=== PATIENT | female | born 1930 | race Hispanic/Latino ===

== ENCOUNTER 2021-07-31 13:03 | Inpatient (IN) | payer MEDICAID ==
[~2021-07-31] VITALS: Ht 167.6 cm; Wt 154.2 kg
[2021-07-31 13:22] LABS: BASOPHILS % 0.1 % (0.0-1.0); HEMATOCRIT 43.3 % (34.2-44.1); HEMOGLOBIN 13.8 g/dL (12.0-16.0); LYMPHOCYTES # (AUTO) 0.7 (1.0-3.2); LYMPHOCYTES % 4.3 % (18.0-39.1); MEAN CORPUSCULAR HGB CONC 31.9 g/dL (31-35); MONOCYTES # (AUTO) 1.4 (0.2-0.8); MONOCYTES % 9.2 % (4.4-11.3); NEUTROPHILS # (AUTO) 12.9 (2.1-6.9); NEUTROPHILS % 85.5 % (38.7-80.0); PLATELET COUNT 241 x10e3/uL (140-360); RED BLOOD COUNT 4.92 x10e6/uL (3.6-5.1)
[2021-07-31] MEDS ORDERED: ACETAMINOPHEN 650 MG SUPP PR NR (13:30)
[2021-07-31 13:40] LABS: ALBUMIN/GLOBULIN RATIO 0.5 (0.8-2.0); ANION GAP 20.3 mmol/L (8-16); CALCIUM 8.5 mg/dL (8.4-10.2); CREATININE, SERUM 0.69 mg/dL (0.57-1.11); POTASSIUM 4.3 mmol/L (3.5-5.1)
[2021-07-31 13:46] LABS: BACTERIA,URINE RARE /HPF; CLARITY,URINE SL CLOUDY (CLEAR); COLOR,URINE YELLOW (YELLOW); EPITHELIAL CELLS,URINE FEW /LPF; KETONES,URINE >=160 (NEGATIVE); LEUKOCYTE ESTERASE ,URINE NEGATIVE (NEGATIVE); NITRITE,URINE NEGATIVE (NEGATIVE); PROTEIN,URINE DIPSTICK 1+ (NEGATIVE); URINE UROBILINOGEN 1 mg/dL (0.2 - 1)
[2021-07-31] MEDS ORDERED: Vancomycin IV 1 GM in SODIUM CHLORIDE 0.9% 250ML 250 ML IV STA (13:48)
[2021-07-31] MEDS ORDERED: PIPERACILLIN/TAZOBACTAM 4.5 GM in SODIUM CHLORIDE 0.9% 100 ML IV ONE (14:00)
[2021-07-31] MEDS ORDERED: ACETAMINOPHEN 1000 MG/100 ML IV ONE (14:00)
[2021-07-31] MEDS ORDERED: SODIUM CHLORIDE 0.9% 1000ML 1,000 ML IV SCH ×2 (14:00→14:45)
[2021-07-31 16:25] VITALS: BP 136/70
[2021-07-31 16:30] VITALS: BP_SYST 136; BP_DIAS 70; BP_DIAS 79
[2021-07-31] MEDS ORDERED: DEXTROSE 50% SYRINGE 50 ML IV PRN (16:30)
[2021-07-31] MEDS ORDERED: Vancomycin IV 1 GM in SODIUM CHLORIDE 0.9% 250ML 250 ML IV SCH (16:30)
[2021-07-31] MEDS: INSULIN REGULAR, HUMAN 100 UNIT/1 ML SQ SCH ×2 (17:00→21:17)
[2021-07-31] MEDS ORDERED: SODIUM CHLORIDE 0.9% 250ML 250 ML ONE (18:26)
[2021-07-31] MEDS: PIPERACILLIN/TAZOBACTAM 3.375 GM in SODIUM CHLORIDE 0.9% 50ML 50 ML IV SCH ×2 (18:27→23:15)
[2021-07-31 20:00] VITALS: BP 157/75
[2021-07-31 21:03] VITALS: BP 157/75
[2021-08-01] VITALS (10 sets, daily range): BP systolic 147–169; BP diastolic 64–80
[2021-08-01] MEDS: Vancomycin IV 1 GM in SODIUM CHLORIDE 0.9% 250ML 250 ML IV SCH ×2 (04:38→17:39)
[2021-08-01] MEDS: PIPERACILLIN/TAZOBACTAM 3.375 GM in SODIUM CHLORIDE 0.9% 50ML 50 ML IV SCH ×4 (05:10→23:12)
[2021-08-01 05:48] LABS: BASOPHILS % 0.1 % (0.0-1.0); EOSINOPHILS % 0.1 % (0.0-6.0); HEMATOCRIT 41.1 % (34.2-44.1); HEMOGLOBIN 13.5 g/dL (12.0-16.0); LYMPHOCYTES # (AUTO) 0.9 (1.0-3.2); LYMPHOCYTES % 6.7 % (18.0-39.1); MEAN CORPUSCULAR HEMOGLOBIN 28.2 pg (28-32); MEAN CORPUSCULAR HGB CONC 32.8 g/dL (31-35); MEAN CORPUSCULAR VOLUME 85.8 fL (81-99); MONOCYTES # (AUTO) 1.2 (0.2-0.8); MONOCYTES % 8.8 % (4.4-11.3); NEUTROPHILS # (AUTO) 11.2 (2.1-6.9); NEUTROPHILS % 83.2 % (38.7-80.0); PLATELET COUNT 210 x10e3/uL (140-360); RED BLOOD COUNT 4.79 x10e6/uL (3.6-5.1); RED CELL DISTRIBUTION WIDTH 13.9 % (11.7-14.4)
[2021-08-01 06:12] LABS: ANION GAP 13.6 mmol/L (8-16); CALCIUM 7.9 mg/dL (8.4-10.2); CREATININE, SERUM 0.53 mg/dL (0.57-1.11); POTASSIUM 3.6 mmol/L (3.5-5.1)
[2021-08-01 06:36] LABS: THYROID STIMULATING HORMONE 1.105 uIU/mL (0.350-4.940)
[2021-08-01] MEDS: INSULIN REGULAR, HUMAN 100 UNIT/1 ML SQ SCH ×4 (08:01→20:07)
[2021-08-01] MEDS: HYDROCODONE/APAP 10MG-325MG TAB PO PRN ×2 (08:14→17:40)
[2021-08-01] MEDS ORDERED: SODIUM CHLORIDE 0.9% 250ML 250 ML ONE (12:37)
[2021-08-01] MEDS: PIOGLITAZONE HCL 45 MG TAB PO SCH (15:45)
[2021-08-01] MEDS: LOSARTAN POTASSIUM 25 MG TAB PO SCH (17:39)
[2021-08-02] VITALS (9 sets, daily range): BP systolic 126–188; BP diastolic 44–82
[2021-08-02] MEDS: HYDROCODONE/APAP 10MG-325MG TAB PO PRN ×3 (03:12→17:45)
[2021-08-02] MEDS: HYDRALAZINE HCL 20 MG/ML VIAL IV PRN (03:12)
[2021-08-02 05:40] LABS: ANION GAP 16.3 mmol/L (8-16); CALCIUM 8.3 mg/dL (8.4-10.2); CREATININE, SERUM 0.51 mg/dL (0.57-1.11); POTASSIUM 3.3 mmol/L (3.5-5.1)
[2021-08-02] MEDS: Vancomycin IV 1 GM in SODIUM CHLORIDE 0.9% 250ML 250 ML IV SCH ×2 (05:59→16:30)
[2021-08-02] MEDS: PIPERACILLIN/TAZOBACTAM 3.375 GM in SODIUM CHLORIDE 0.9% 50ML 50 ML IV SCH ×3 (07:06→18:35)
[2021-08-02] MEDS: INSULIN REGULAR, HUMAN 100 UNIT/1 ML SQ SCH ×4 (07:30→21:00)
[2021-08-02 07:57] LABS: BASOPHILS % 0.3 % (0.0-1.0); HEMATOCRIT 45.1 % (34.2-44.1); HEMOGLOBIN 14.5 g/dL (12.0-16.0); LYMPHOCYTES # (AUTO) 0.7 (1.0-3.2); LYMPHOCYTES % 4.5 % (18.0-39.1); MEAN CORPUSCULAR HEMOGLOBIN 28.1 pg (28-32); MEAN CORPUSCULAR HGB CONC 32.2 g/dL (31-35); MEAN CORPUSCULAR VOLUME 87.4 fL (81-99); MONOCYTES % 6.4 % (4.4-11.3); NEUTROPHILS # (AUTO) 13.5 (2.1-6.9); NEUTROPHILS % 87.7 % (38.7-80.0); PLATELET COUNT 294 x10e3/uL (140-360); RED BLOOD COUNT 5.16 x10e6/uL (3.6-5.1); RED CELL DISTRIBUTION WIDTH 13.9 % (11.7-14.4)
[2021-08-02] MEDS: LOSARTAN POTASSIUM 25 MG TAB PO SCH (09:34)
[2021-08-02] MEDS: PIOGLITAZONE HCL 45 MG TAB PO SCH (09:34)
[2021-08-02] MEDS ORDERED: BISACODYL 10 MG SUPP PR NR (11:15)
[2021-08-02] MEDS: POTASSIUM CHLORIDE 20 MEQ TAB CR PO SCH ×2 (15:00→18:35)
[2021-08-02] MEDS: FLUCONAZOLE 200 MG/100 ML 100 ML IV SCH (15:00)
[2021-08-03] VITALS (8 sets, daily range): BP systolic 131–152; BP diastolic 55–79
[2021-08-03] MEDS: HYDROCODONE/APAP 10MG-325MG TAB PO PRN ×3 (00:14→19:12)
[2021-08-03] MEDS: PIPERACILLIN/TAZOBACTAM 3.375 GM in SODIUM CHLORIDE 0.9% 50ML 50 ML IV SCH ×4 (00:29→18:16)
[2021-08-03] MEDS: Vancomycin IV 1 GM in SODIUM CHLORIDE 0.9% 250ML 250 ML IV SCH ×2 (04:30→16:30)
[2021-08-03 07:23] LABS: BASOPHILS % 0.1 % (0.0-1.0); EOSINOPHILS % 0.1 % (0.0-6.0); HEMATOCRIT 40.8 % (34.2-44.1); HEMOGLOBIN 13.4 g/dL (12.0-16.0); LYMPHOCYTES % 6.9 % (18.0-39.1); MEAN CORPUSCULAR HEMOGLOBIN 28.3 pg (28-32); MEAN CORPUSCULAR HGB CONC 32.8 g/dL (31-35); MEAN CORPUSCULAR VOLUME 86.1 fL (81-99); MONOCYTES # (AUTO) 1.1 (0.2-0.8); MONOCYTES % 7.6 % (4.4-11.3); NEUTROPHILS % 83.8 % (38.7-80.0); PLATELET COUNT 274 x10e3/uL (140-360); RED BLOOD COUNT 4.74 x10e6/uL (3.6-5.1)
[2021-08-03] MEDS: INSULIN REGULAR, HUMAN 100 UNIT/1 ML SQ SCH ×4 (07:30→21:40)
[2021-08-03 07:43] LABS: ANION GAP 17.2 mmol/L (8-16); CALCIUM 8.6 mg/dL (8.4-10.2); CREATININE, SERUM 0.54 mg/dL (0.57-1.11); POTASSIUM 4.2 mmol/L (3.5-5.1)
[2021-08-03] MEDS: LOSARTAN POTASSIUM 25 MG TAB PO SCH (09:15)
[2021-08-03] MEDS: DOCUSATE SODIUM 100 MG CAP PO SCH (09:15)
[2021-08-03] MEDS: PIOGLITAZONE HCL 45 MG TAB PO SCH (09:15)
[2021-08-03] MEDS: FLUCONAZOLE 200 MG/100 ML 100 ML IV SCH (14:05)
[2021-08-04] VITALS (8 sets, daily range): BP systolic 104–139; BP diastolic 47–58
[2021-08-04] MEDS: PIPERACILLIN/TAZOBACTAM 3.375 GM in SODIUM CHLORIDE 0.9% 50ML 50 ML IV SCH ×6 (00:20→23:34)
[2021-08-04] MEDS: HYDROCODONE/APAP 10MG-325MG TAB PO PRN ×3 (00:38→16:00)
[2021-08-04] MEDS: Vancomycin IV 1 GM in SODIUM CHLORIDE 0.9% 250ML 250 ML IV SCH ×2 (04:30→05:54)
[2021-08-04] MEDS ORDERED: SODIUM CHLORIDE 0.9% 250ML 250 ML ONE (05:08)
[2021-08-04 05:58] LABS: BASOPHILS % 0.2 % (0.0-1.0); EOSINOPHILS % 0.2 % (0.0-6.0); HEMATOCRIT 41.5 % (34.2-44.1); HEMOGLOBIN 13.6 g/dL (12.0-16.0); LYMPHOCYTES # (AUTO) 1.4 (1.0-3.2); LYMPHOCYTES % 10.6 % (18.0-39.1); MEAN CORPUSCULAR HEMOGLOBIN 28.2 pg (28-32); MEAN CORPUSCULAR HGB CONC 32.8 g/dL (31-35); MEAN CORPUSCULAR VOLUME 85.9 fL (81-99); MONOCYTES # (AUTO) 1.2 (0.2-0.8); NEUTROPHILS # (AUTO) 10.2 (2.1-6.9); NEUTROPHILS % 77.3 % (38.7-80.0); PLATELET COUNT 265 x10e3/uL (140-360); RED BLOOD COUNT 4.83 x10e6/uL (3.6-5.1)
[2021-08-04 06:30] LABS: ANION GAP 13.9 mmol/L (8-16); CALCIUM 8.7 mg/dL (8.4-10.2); CREATININE, SERUM 0.52 mg/dL (0.57-1.11); POTASSIUM 3.9 mmol/L (3.5-5.1)
[2021-08-04] MEDS: INSULIN REGULAR, HUMAN 100 UNIT/1 ML SQ SCH ×4 (07:30→20:42)
[2021-08-04] MEDS: PIOGLITAZONE HCL 45 MG TAB PO SCH (08:57)
[2021-08-04] MEDS: DOCUSATE SODIUM 100 MG CAP PO SCH (08:57)
[2021-08-04] MEDS: LOSARTAN POTASSIUM 25 MG TAB PO SCH (08:58)
[2021-08-04] MEDS: FLUCONAZOLE 200 MG/100 ML 100 ML IV SCH (14:20)
[2021-08-04 17:58] LABS: BODY FLUID APPEARANCE CLOUDY; BODY FLUID COLOR YELLOW; BODY FLUID TYPE SYNOVIAL; WBC,BODY FLUID 53033 cells/uL
[2021-08-04 17:59] LABS: RBC,BODY FLUID 72000 cells/uL
[2021-08-04 19:41] LABS: LYMPHOCYTES,BODY FLUID 40 %; MONO/MACROPHG,BODY FLUID 5 %; NEUTROPHILS,BODY FLUID 55 %
[2021-08-05] VITALS (8 sets, daily range): BP systolic 117–162; BP diastolic 40–91
[2021-08-05] MEDS ORDERED: AMLODIPINE BESYL5 MG PO (00:19)
[2021-08-05] MEDS: HYDROCODONE/APAP 10MG-325MG TAB PO PRN ×3 (00:19→15:25)
[2021-08-05] MEDS ORDERED: DIOVAN80 MG PO (00:19)
[2021-08-05] MEDS ORDERED: LIPITOR20 MG PO (00:20)
[2021-08-05] MEDS ORDERED: METFORMIN HCL500 MG PO (00:21)
[2021-08-05] MEDS: Vancomycin IV 1 GM in SODIUM CHLORIDE 0.9% 250ML 250 ML IV SCH ×2 (03:55→16:30)
[2021-08-05] MEDS: PIPERACILLIN/TAZOBACTAM 3.375 GM in SODIUM CHLORIDE 0.9% 50ML 50 ML IV SCH ×4 (05:38→23:56)
[2021-08-05 05:41] LABS: BASOPHILS # (AUTO) 0.1 (0.0-0.1); BASOPHILS % 0.5 % (0.0-1.0); EOSINOPHILS # (AUTO) 0.1 (0.0-0.4); EOSINOPHILS % 0.4 % (0.0-6.0); HEMATOCRIT 42.7 % (34.2-44.1); HEMOGLOBIN 13.6 g/dL (12.0-16.0); LYMPHOCYTES # (AUTO) 1.3 (1.0-3.2); LYMPHOCYTES % 10.8 % (18.0-39.1); MEAN CORPUSCULAR HEMOGLOBIN 28.2 pg (28-32); MEAN CORPUSCULAR HGB CONC 31.9 g/dL (31-35); MEAN CORPUSCULAR VOLUME 88.4 fL (81-99); MONOCYTES % 7.9 % (4.4-11.3); NEUTROPHILS # (AUTO) 9.3 (2.1-6.9); NEUTROPHILS % 78.1 % (38.7-80.0); PLATELET COUNT 262 x10e3/uL (140-360); RED BLOOD COUNT 4.83 x10e6/uL (3.6-5.1); RED CELL DISTRIBUTION WIDTH 14.1 % (11.7-14.4)
[2021-08-05 06:20] LABS: ALBUMIN 1.5 g/dL (3.5-5.0); ALBUMIN/GLOBULIN RATIO 0.3 (0.8-2.0); ANION GAP 13.1 mmol/L (8-16); CALCIUM 8.5 mg/dL (8.4-10.2); CREATININE, SERUM 0.54 mg/dL (0.57-1.11); POTASSIUM 4.1 mmol/L (3.5-5.1)
[2021-08-05] MEDS ORDERED: ATORVASTATIN CA10 MG (07:25)
[2021-08-05] MEDS ORDERED: OMEPRAZOLE20 MG (07:25)
[2021-08-05] MEDS ORDERED: KETOCONAZOLE15 GM (07:25)
[2021-08-05] MEDS ORDERED: LIPITOR10 MG (07:25)
[2021-08-05] MEDS: INSULIN REGULAR, HUMAN 100 UNIT/1 ML SQ SCH ×4 (07:30→21:34)
[2021-08-05] MEDS: PIOGLITAZONE HCL 45 MG TAB PO SCH (09:29)
[2021-08-05] MEDS: LOSARTAN POTASSIUM 25 MG TAB PO SCH (09:29)
[2021-08-05] MEDS: DOCUSATE SODIUM 100 MG CAP PO SCH (09:29)
[2021-08-05] MEDS: FLUCONAZOLE 200 MG/100 ML 100 ML IV SCH (13:25)
[2021-08-06] VITALS (8 sets, daily range): BP systolic 102–144; BP diastolic 56–88
[2021-08-06] MEDS: HYDROCODONE/APAP 10MG-325MG TAB PO PRN ×4 (00:05→19:33)
[2021-08-06] MEDS: Vancomycin IV 1 GM in SODIUM CHLORIDE 0.9% 250ML 250 ML IV SCH ×2 (04:35→16:30)
[2021-08-06] MEDS: PIPERACILLIN/TAZOBACTAM 3.375 GM in SODIUM CHLORIDE 0.9% 50ML 50 ML IV SCH ×3 (05:57→18:00)
[2021-08-06 06:27] LABS: BASOPHILS % 0.3 % (0.0-1.0); EOSINOPHILS # (AUTO) 0.1 (0.0-0.4); EOSINOPHILS % 0.9 % (0.0-6.0); HEMOGLOBIN 12.8 g/dL (12.0-16.0); LYMPHOCYTES # (AUTO) 1.1 (1.0-3.2); LYMPHOCYTES % 11.5 % (18.0-39.1); MEAN CORPUSCULAR HEMOGLOBIN 27.6 pg (28-32); MEAN CORPUSCULAR VOLUME 86.2 fL (81-99); MONOCYTES # (AUTO) 0.7 (0.2-0.8); MONOCYTES % 7.2 % (4.4-11.3); NEUTROPHILS # (AUTO) 7.7 (2.1-6.9); PLATELET COUNT 250 x10e3/uL (140-360); RED BLOOD COUNT 4.64 x10e6/uL (3.6-5.1); RED CELL DISTRIBUTION WIDTH 14.1 % (11.7-14.4)
[2021-08-06 06:51] LABS: ALBUMIN 1.4 g/dL (3.5-5.0); ALBUMIN/GLOBULIN RATIO 0.4 (0.8-2.0); CALCIUM 8.3 mg/dL (8.4-10.2); CREATININE, SERUM 0.48 mg/dL (0.57-1.11)
[2021-08-06] MEDS: INSULIN REGULAR, HUMAN 100 UNIT/1 ML SQ SCH ×4 (07:30→20:30)
[2021-08-06] MEDS: PIOGLITAZONE HCL 45 MG TAB PO SCH (09:17)
[2021-08-06] MEDS: LOSARTAN POTASSIUM 25 MG TAB PO SCH (09:17)
[2021-08-06] MEDS: DOCUSATE SODIUM 100 MG CAP PO SCH (09:17)
[2021-08-06] MEDS: FLUCONAZOLE 100 MG TAB PO SCH (09:18)
[2021-08-07] VITALS (8 sets, daily range): BP systolic 126–166; BP diastolic 61–81
[2021-08-07] MEDS: PIPERACILLIN/TAZOBACTAM 3.375 GM in SODIUM CHLORIDE 0.9% 50ML 50 ML IV SCH ×4 (00:31→17:00)
[2021-08-07] MEDS: HYDRALAZINE HCL 20 MG/ML VIAL IV PRN (00:35)
[2021-08-07] MEDS: HYDROCODONE/APAP 10MG-325MG TAB PO PRN ×3 (00:38→14:20)
[2021-08-07] MEDS: Vancomycin IV 1 GM in SODIUM CHLORIDE 0.9% 250ML 250 ML IV SCH (04:33)
[2021-08-07 06:23] LABS: BASOPHILS % 0.4 % (0.0-1.0); EOSINOPHILS % 0.4 % (0.0-6.0); HEMATOCRIT 40.8 % (34.2-44.1); LYMPHOCYTES % 11.4 % (18.0-39.1); MEAN CORPUSCULAR HGB CONC 31.9 g/dL (31-35); MEAN CORPUSCULAR VOLUME 87.9 fL (81-99); MONOCYTES # (AUTO) 0.8 (0.2-0.8); MONOCYTES % 8.8 % (4.4-11.3); NEUTROPHILS % 77.7 % (38.7-80.0); PLATELET COUNT 280 x10e3/uL (140-360); RED BLOOD COUNT 4.64 x10e6/uL (3.6-5.1); RED CELL DISTRIBUTION WIDTH 14.4 % (11.7-14.4)
[2021-08-07 06:43] LABS: ANION GAP 11.8 mmol/L (8-16); CALCIUM 7.8 mg/dL (8.4-10.2); CREATININE, SERUM 0.52 mg/dL (0.57-1.11); POTASSIUM 3.8 mmol/L (3.5-5.1)
[2021-08-07] MEDS: INSULIN REGULAR, HUMAN 100 UNIT/1 ML SQ SCH ×4 (07:30→20:30)
[2021-08-07] MEDS: LOSARTAN POTASSIUM 25 MG TAB PO SCH (08:53)
[2021-08-07] MEDS: DOCUSATE SODIUM 100 MG CAP PO SCH (08:53)
[2021-08-07] MEDS: PIOGLITAZONE HCL 45 MG TAB PO SCH (08:53)
[2021-08-07] MEDS: FLUCONAZOLE 100 MG TAB PO SCH (08:53)
[2021-08-07] MEDS: ACETAMINOPHEN 325 MG TAB PO PRN (12:00)
[2021-08-08] VITALS (8 sets, daily range): BP systolic 130–163; BP diastolic 59–77
[2021-08-08] MEDS: PIPERACILLIN/TAZOBACTAM 3.375 GM in SODIUM CHLORIDE 0.9% 50ML 50 ML IV SCH ×4 (00:29→17:41)
[2021-08-08] MEDS: HYDROCODONE/APAP 10MG-325MG TAB PO PRN ×4 (00:43→18:35)
[2021-08-08 05:34] LABS: BASOPHILS % 0.2 % (0.0-1.0); EOSINOPHILS % 0.3 % (0.0-6.0); HEMATOCRIT 40.5 % (34.2-44.1); LYMPHOCYTES # (AUTO) 1.2 (1.0-3.2); MEAN CORPUSCULAR HEMOGLOBIN 28.1 pg (28-32); MEAN CORPUSCULAR HGB CONC 32.1 g/dL (31-35); MEAN CORPUSCULAR VOLUME 87.5 fL (81-99); MONOCYTES % 8.3 % (4.4-11.3); NEUTROPHILS # (AUTO) 9.7 (2.1-6.9); NEUTROPHILS % 80.1 % (38.7-80.0); PLATELET COUNT 322 x10e3/uL (140-360); RED BLOOD COUNT 4.63 x10e6/uL (3.6-5.1); RED CELL DISTRIBUTION WIDTH 14.4 % (11.7-14.4)
[2021-08-08 05:48] LABS: ANION GAP 14.9 mmol/L (8-16); CREATININE, SERUM 0.58 mg/dL (0.57-1.11); POTASSIUM 3.9 mmol/L (3.5-5.1)
[2021-08-08] MEDS: INSULIN REGULAR, HUMAN 100 UNIT/1 ML SQ SCH ×4 (07:30→21:30)
[2021-08-08] MEDS: PIOGLITAZONE HCL 45 MG TAB PO SCH (09:51)
[2021-08-08] MEDS: DOCUSATE SODIUM 100 MG CAP PO SCH (09:51)
[2021-08-08] MEDS: FLUCONAZOLE 100 MG TAB PO SCH (09:52)
[2021-08-08] MEDS: LOSARTAN POTASSIUM 25 MG TAB PO SCH (09:52)
[2021-08-08] MEDS: ACETAMINOPHEN 325 MG TAB PO PRN (09:55)
[2021-08-09] VITALS (7 sets, daily range): BP systolic 111–146; BP diastolic 55–62
[2021-08-09] MEDS: PIPERACILLIN/TAZOBACTAM 3.375 GM in SODIUM CHLORIDE 0.9% 50ML 50 ML IV SCH ×4 (00:23→17:07)
[2021-08-09] MEDS: HYDROCODONE/APAP 10MG-325MG TAB PO PRN ×3 (03:47→20:54)
[2021-08-09] MEDS: INSULIN REGULAR, HUMAN 100 UNIT/1 ML SQ SCH ×4 (07:30→20:48)
[2021-08-09] MEDS: DOCUSATE SODIUM 100 MG CAP PO SCH (09:05)
[2021-08-09] MEDS: FLUCONAZOLE 100 MG TAB PO SCH (09:05)
[2021-08-09] MEDS: PIOGLITAZONE HCL 45 MG TAB PO SCH (09:05)
[2021-08-09] MEDS: LOSARTAN POTASSIUM 25 MG TAB PO SCH (09:05)
[2021-08-09] MEDS ORDERED: SODIUM CHLORIDE 0.9% 50ML 50 ML ONE (14:02)
[2021-08-10] VITALS: BP 117/63
[2021-08-10] MEDS: PIPERACILLIN/TAZOBACTAM 3.375 GM in SODIUM CHLORIDE 0.9% 50ML 50 ML IV SCH ×3 (00:05→12:00)
[2021-08-10 00:12] VITALS: BP 146/57
[2021-08-10] MEDS: HYDROCODONE/APAP 10MG-325MG TAB PO PRN ×2 (01:10→13:20)
[2021-08-10 04:00] VITALS: BP 128/69
[2021-08-10 05:59] LABS: BASOPHILS % 0.4 % (0.0-1.0); EOSINOPHILS # (AUTO) 0.1 (0.0-0.4); EOSINOPHILS % 1.1 % (0.0-6.0); HEMATOCRIT 38.6 % (34.2-44.1); HEMOGLOBIN 11.8 g/dL (12.0-16.0); LYMPHOCYTES # (AUTO) 1.1 (1.0-3.2); LYMPHOCYTES % 12.8 % (18.0-39.1); MEAN CORPUSCULAR HEMOGLOBIN 27.5 pg (28-32); MEAN CORPUSCULAR HGB CONC 30.6 g/dL (31-35); MONOCYTES # (AUTO) 0.8 (0.2-0.8); MONOCYTES % 9.2 % (4.4-11.3); NEUTROPHILS # (AUTO) 6.4 (2.1-6.9); NEUTROPHILS % 75.6 % (38.7-80.0); PLATELET COUNT 300 x10e3/uL (140-360); RED BLOOD COUNT 4.29 x10e6/uL (3.6-5.1); RED CELL DISTRIBUTION WIDTH 14.5 % (11.7-14.4)
[2021-08-10 06:20] LABS: ANION GAP 12.8 mmol/L (8-16); CALCIUM 8.7 mg/dL (8.4-10.2); CREATININE, SERUM 0.48 mg/dL (0.57-1.11); POTASSIUM 3.8 mmol/L (3.5-5.1)
[2021-08-10] MEDS: INSULIN REGULAR, HUMAN 100 UNIT/1 ML SQ SCH ×2 (07:30→11:30)
[2021-08-10 08:00] VITALS: BP 146/56
[2021-08-10 08:28] VITALS: BP 146/56
[2021-08-10] MEDS: PIOGLITAZONE HCL 45 MG TAB PO SCH (09:30)
[2021-08-10] MEDS: DOCUSATE SODIUM 100 MG CAP PO SCH (09:30)
[2021-08-10] MEDS: LOSARTAN POTASSIUM 25 MG TAB PO SCH (09:31)
[2021-08-10 12:00] VITALS: BP 159/70
[2021-08-10] MEDS ORDERED: LEVOFLOXACIN250 MG PO (12:08)
[2021-08-10] MEDS ORDERED: HYDROCODON-ACE1 EAC9 PO (12:16)
[2021-08-11] MEDS ORDERED: LEVOFLOXACIN750 MG PO (01:00)
== END 2021-08-10 14:29 | disposition home or self-care (01) | DRG 549 ==
LOC: ER 13:26 → ERHOLD 15:03 → MED/SURG3 15:58
PROVIDERS: ADMIT Internal Medicine; ATTEND Internal Medicine
PROC: 0S9D3ZX Drainage of Left Knee Joint, Percutaneous Approach, Diagnostic (ICD-10-PCS; principal; 2021-08-04)
DX: M00.862 Arthritis due to other bacteria, left knee (principal); B37.49 Other urogenital candidiasis; Z68.43 Body mass index [BMI] 50.0-59.9, adult; M17.12 Unilateral primary osteoarthritis, left knee; Z20.822 Contact with and (suspected) exposure to COVID-19; E66.01 Morbid (severe) obesity due to excess calories; E11.649 Type 2 diabetes mellitus with hypoglycemia without coma; Z79.899 Other long term (current) drug therapy; B96.5 Pseudomonas (aeruginosa) (mallei) (pseudomallei) as the cause of diseases classified elsewhere; Z79.4 Long term (current) use of insulin
CPT/HCPCS: 36415; 51700; 71045; 80048; 80053; 80202; 81001; 82948; 83036; 83605; 84443; 85025; 87040; 87071; 87075; 87086; 87186; 87205; 89051; 89060; 93005; 93971; 94799; 96372; 97139; 99251; 99285; J0360; J1450; J1817; J2543; J3370; J7030; J7050; U0002